=== PATIENT | male | born 1955 | race Caucasian/White ===

== ENCOUNTER → 2017-01-23 | Outpatient (CLI) | payer OTHER ==
[~2017-01-23] MED LIST: AMLODIPINE BESYL5 MG PO; BUPROBAN150 MG PO; GABAPENTIN PO; GABAPENTIN400 MG PO; HYDROCHLOROTH12.5 M3 PO; K-DUR20 MEQ PO; LISINOPRIL20 MG PO; LO-DOSE ASPIRIN81 M2 PO; METFORMIN HCL1000 MG PO; METOPROLOL TART50 MG PO; NEURONTIN800 MG PO; NIACIN 500 MG1 EACH PO; NIASPAN,SLO-NI500 MG PO; OXYCODONE-ACET1 EACH PO; PLAVIX75 MG PO; PLETAL100 MG PO; POTASSIUM CHLO20 ME2 PO; SIMVASTATIN40 MG PO
[2017-01-23 10:24] LABS: PROTHROMBIN TIME 10.6 (9.2-11.2); PTT 31.8 (25-32)
== END | disposition home or self-care (01) ==
LOC: OPR 08:36 → EDSTATUS 09:00
PROVIDERS: Radiology Diagnostic Radiology
DX: C77.0 Secondary and unspecified malignant neoplasm of lymph nodes of head, face and neck (principal); I10 Essential (primary) hypertension; E11.9 Type 2 diabetes mellitus without complications; E78.5 Hyperlipidemia, unspecified; Z87.891 Personal history of nicotine dependence; E66.3 Overweight; Z68.27 Body mass index [BMI] 27.0-27.9, adult; K76.0 Fatty (change of) liver, not elsewhere classified; I65.22 Occlusion and stenosis of left carotid artery; Z83.3 Family history of diabetes mellitus; Z80.0 Family history of malignant neoplasm of digestive organs; Z79.82 Long term (current) use of aspirin; Z79.899 Other long term (current) drug therapy
CPT/HCPCS: 76942; 85610; 85730; 88305; 88341 TC; 88342 TC

== ENCOUNTER 2017-02-21 09:58 | Inpatient (IN) | payer OTHER ==
[~2017-02-21] VITALS: Ht 180.3 cm; Wt 84.0 kg
[2017-02-21] VITALS (7 sets, daily range): BP systolic 99–112; BP diastolic 50–59
[2017-02-21 10:22] LABS: POINT-OF-CARE METER ID UU13113778
[2017-02-21 10:32] LABS: MEAN PLAT.VOLUME 9.4 uM^3 (9.0-12.4); PLATELET COUNT 292 K/uL (156-360)
[2017-02-21 10:42] LABS: CHLORIDE 112 mEq/L (99-109); POTASSIUM 5.5 mEq/L (3.7-5.4); SODIUM 134 mEq/L (136-147)
[2017-02-21 10:43] LABS: GLUCOSE 229 mg/dL (70-99)
[2017-02-21 10:45] LABS: ANION GAP 15 MEQ/L (2-14); HEMATOCRIT 45.4 % (38.0-50.0); MCH 29.9 PG (29.0-34.0); MCHC 32.4 G/DL (30.0-36.0); MCV 92.5 FL (86-99); RBC DIS.WIDTH-CV 13.9 % (11.8-14.6); RBC DIS.WIDTH-SD 46.9 % (39-53); RED BLOOD COUNT 4.91 M/uL (4.00-5.50)
[2017-02-21 10:46] LABS: WHITE BLOOD COUNT 50.9 K/uL (4.1-10.2)
[2017-02-21 10:47] LABS: GFR ESTIMATE (CALCULATED) 6 mL/min/
[2017-02-21 10:48] LABS: UREA NITROGEN (BUN) 83 mg/dL (9-23)
[2017-02-21 11:24] LABS: URIC ACID 15.1 mg/dL (3.1-9.2)
[2017-02-21 11:45] LABS: LACTATE DEHYDROGENASE 431 IU/L (20-246)
[2017-02-21] MEDS ORDERED: NIACIN500 M2 PO (12:41)
[2017-02-21] MEDS ORDERED: NIACIN500 MG PO (12:41)
[2017-02-21] MEDS ORDERED: WELLBUTRIN SR150 MG PO (12:43)
[2017-02-21 16:49] LABS: ANION GAP 12 MEQ/L (2-14); CHLORIDE 115 MEQ/L (99-109); GFR ESTIMATE (CALCULATED) 6 mL/min/; GLUCOSE 160 mg/dL (70-99); POTASSIUM 5.3 MEQ/L (3.7-5.4); SAMPLE HEMOLYSIS CHECK 0; SAMPLE ICTERIC CHECK 0; SAMPLE LIPEMIA CHECK 0; SODIUM 135 MEQ/L (136-147); UREA NITROGEN (BUN) 79 mg/dL (9-23)
[2017-02-21 18:38] LABS: BASE EXCESS -22.6 mEq/L (-3 to +3); BICARBONATE 6.4 mEq/L (22-26); CARBOXY HGB 2.4 % (0-5); PCO2 23 mm Hg (35-45); PO2 84 mm Hg (80-100)
[2017-02-21 18:40] LABS: COMMENTS - BLOOD GASES A+C+; DEVICE RA; SITE LR; pH 7.05 (7.35-7.45)
[2017-02-21 19:22] LABS: ALKALINE PHOSPHATASE 127 IU/L (3-129); CREATINE KINASE 18 IU/L (1-294); DIRECT BILIRUBIN 0.1 mg/dL (0.0-0.3); TOTAL BILIRUBIN 0.2 MG/DL (0.0-1.0)
[2017-02-21 21:18] LABS: ADD MIUA? YES; BILIRUBIN NEGATIVE; BLOOD NEGATIVE; COLOR YELLOW ((YELLOW)); GLUCOSE (STRIP) NEGATIVE; KETONES NEGATIVE; LEUKOCYTES NEGATIVE; NITRITE NEGATIVE; PROTEIN (STRIP) 100; SPECIFIC GRAVITY 1.017 (1.000-1.030); UROBILINOGEN 0.2 MG/DL (0.2-1.0)
[2017-02-21 22:01] LABS: BACTERIA RARE /HPF; EPITHELIAL CELLS NONE SEEN /HPF; HYALINE CASTS 30-40 /LPF; MUCUS TRACE /LPF; RED BLOOD CELLS 0-5 /HPF (0-5)
[2017-02-22] VITALS (7 sets, daily range): BP systolic 102–144; BP diastolic 53–70
[2017-02-22 00:52] LABS: CHLORIDE 118 mEq/L (99-109); POTASSIUM 4.4 mEq/L (3.7-5.4); SODIUM 137 mEq/L (136-147)
[2017-02-22 00:54] LABS: GLUCOSE 203 mg/dL (70-99)
[2017-02-22 00:55] LABS: ANION GAP 10 MEQ/L (2-14)
[2017-02-22 00:58] LABS: GFR ESTIMATE (CALCULATED) 6 mL/min/; UREA NITROGEN (BUN) 75 mg/dL (9-23)
[2017-02-22 06:06] LABS: HEMATOCRIT 34.3 % (38.0-50.0); MCH 30.7 PG (29.0-34.0); MCHC 33.5 G/DL (30.0-36.0); MCV 91.7 FL (86-99); MEAN PLAT.VOLUME 9.7 uM^3 (9.0-12.4); PLATELET COUNT 226 K/uL (156-360); RBC DIS.WIDTH-SD 46.7 % (39-53)
[2017-02-22 06:13] LABS: RED BLOOD COUNT 3.74 M/uL (4.00-5.50); WHITE BLOOD COUNT 44.9 K/uL (4.1-10.2)
[2017-02-22 06:27] LABS: ANION GAP 13 MEQ/L (2-14); CHLORIDE 113 MEQ/L (99-109); GFR ESTIMATE (CALCULATED) 6 mL/min/; GLUCOSE 169 mg/dL (70-99); POTASSIUM 4.1 MEQ/L (3.7-5.4); SAMPLE HEMOLYSIS CHECK 0; SAMPLE ICTERIC CHECK 0; SAMPLE LIPEMIA CHECK 0; SODIUM 136 MEQ/L (136-147); UREA NITROGEN (BUN) 78 mg/dL (9-23)
[2017-02-22 11:27] LABS: BASE EXCESS -13.5 mEq/L (-3 to +3); BICARBONATE 12.1 mEq/L (22-26); CARBOXY HGB 1.9 % (0-5); COMMENTS - BLOOD GASES A+C+; DEVICE RA; PCO2 27 mm Hg (35-45); PO2 79 mm Hg (80-100); SITE LR
[2017-02-22 11:28] LABS: pH 7.26 (7.35-7.45)
[2017-02-22 12:39] LABS: ANION GAP 12 MEQ/L (2-14); CHLORIDE 111 MEQ/L (99-109); GFR ESTIMATE (CALCULATED) 8 mL/min/; GLUCOSE 165 mg/dL (70-99); POTASSIUM 3.4 MEQ/L (3.7-5.4); SAMPLE HEMOLYSIS CHECK 0; SAMPLE ICTERIC CHECK 0; SAMPLE LIPEMIA CHECK 0; SODIUM 136 MEQ/L (136-147); UREA NITROGEN (BUN) 73 mg/dL (9-23)
[2017-02-22 18:17] LABS: ANION GAP 13 MEQ/L (2-14); CHLORIDE 112 MEQ/L (99-109); GFR ESTIMATE (CALCULATED) 12 mL/min/; GLUCOSE 172 mg/dL (70-99); POTASSIUM 3.2 MEQ/L (3.7-5.4); SAMPLE HEMOLYSIS CHECK 0; SAMPLE ICTERIC CHECK 0; SAMPLE LIPEMIA CHECK 0; SODIUM 141 MEQ/L (136-147); UREA NITROGEN (BUN) 67 mg/dL (9-23)
[2017-02-23 01:19] VITALS: BP 128/64
[2017-02-23 04:58] VITALS: BP 138/74
[2017-02-23 06:36] LABS: ANION GAP 10 MEQ/L (2-14); CHLORIDE 114 MEQ/L (99-109); GLUCOSE 171 mg/dL (70-99); POTASSIUM 3.4 MEQ/L (3.7-5.4); SAMPLE HEMOLYSIS CHECK 0; SAMPLE ICTERIC CHECK 0; SAMPLE LIPEMIA CHECK 0; SODIUM 146 MEQ/L (136-147); UREA NITROGEN (BUN) 48 mg/dL (9-23)
[2017-02-23 06:47] LABS: GFR ESTIMATE (CALCULATED) 29 mL/min/
[2017-02-23 07:15] VITALS: BP 156/76
[2017-02-23 09:19] LABS: HEMATOCRIT 33.3 % (38.0-50.0); MCH 29.9 PG (29.0-34.0); MCHC 34.8 G/DL (30.0-36.0); MEAN PLAT.VOLUME 9.6 uM^3 (9.0-12.4); PLATELET COUNT 262 K/uL (156-360); RBC DIS.WIDTH-CV 13.5 % (11.8-14.6); RBC DIS.WIDTH-SD 41.6 % (39-53); RED BLOOD COUNT 3.88 M/uL (4.00-5.50); WHITE BLOOD COUNT 28.8 K/uL (4.1-10.2)
[2017-02-23 09:32] LABS: MCV 85.8 FL (86-99)
[2017-02-23 09:44] LABS: BAND NEUTROPHILS 0.9 % (0-8.0); BASOPHILS 0.9 %; EOSINOPHIL ABS CT 0; LYMPHOCYTES 10.5 % (15.0-45.0); METAMYELOCYTES 0.9 %; SEG.NEUTROPHILS 82.4 % (46.0-76.0)
[2017-02-23 11:14] VITALS: BP 120/76
[2017-02-23 14:34] VITALS: BP 156/76
[2017-02-23 23:27] VITALS: BP 133/63
[2017-02-24 06:47] LABS: BASOPHIL COUNT 0.1 K/uL (0-0.1); EOSINOPHIL (%) 0.6 % (0-5); EOSINOPHIL COUNT 0.1 K/uL (0-0.3); HEMATOCRIT 33.2 % (38.0-50.0); IMMATURE GRANULOCYTE (%) 4.1 % (0.0-0.7); IMMATURE GRANULOCYTE COUNT 0.9 K/uL; INSTRUMENT ABS NEUTROPHIL CT 16.9 K/uL; LYMPHOCYTE COUNT 2.1 K/uL (1.0-2.8); MCHC 34.3 G/DL (30.0-36.0); MCV 87.4 FL (86-99); MEAN PLAT.VOLUME 9.6 uM^3 (9.0-12.4); MONOCYTE (%) 8.5 % (3-12); MONOCYTE COUNT 1.9 K/uL (0-0.8); NEUTROPHIL (%) 76.8 % (45-76); NEUTROPHIL COUNT 16.9 K/uL (1.8-6.4); PLATELET COUNT 260 K/uL (156-360); RBC DIS.WIDTH-CV 13.6 % (11.8-14.6); RBC DIS.WIDTH-SD 42.7 % (39-53)
[2017-02-24 07:15] LABS: ANION GAP 11 MEQ/L (2-14); CHLORIDE 115 MEQ/L (99-109); GLUCOSE 139 mg/dL (70-99); POTASSIUM 3.9 MEQ/L (3.7-5.4); SAMPLE HEMOLYSIS CHECK 0; SAMPLE ICTERIC CHECK 0; SAMPLE LIPEMIA CHECK 0; SODIUM 147 MEQ/L (136-147); UREA NITROGEN (BUN) 30 mg/dL (9-23)
[2017-02-24 07:18] VITALS: BP 157/81
[2017-02-24 07:22] LABS: GFR ESTIMATE (CALCULATED) > 59 mL/min/
[2017-02-24] MEDS ORDERED: MGO400 MG PO (11:31)
[2017-02-24] MEDS ORDERED: NEUTRA-PHOS,1 PACKET PO (11:31)
[2017-02-24] MEDS ORDERED: GABAPENTIN300 MG PO (11:32)
== END 2017-02-24 13:14 | disposition home or self-care (01) | DRG 917 ==
LOC: EME 09:58 → 5EAST 14:23 → 4EAST 14:23 → EDOF 14:23 → 4EAST 15:24 → 5EAST 02-23 14:15
PROVIDERS: Hospitalist; Internal Medicine; Internal Medicine Nephrology; Student in an Organized Health Care Education/Training Program
DX: T45.1X5A Adverse effect of antineoplastic and immunosuppressive drugs, initial encounter (principal); N17.0 Acute kidney failure with tubular necrosis; E87.2 Acidosis; I95.9 Hypotension, unspecified; Z87.891 Personal history of nicotine dependence; C34.90 Malignant neoplasm of unspecified part of unspecified bronchus or lung; E86.0 Dehydration; E83.42 Hypomagnesemia; E87.6 Hypokalemia; E83.39 Other disorders of phosphorus metabolism; E11.9 Type 2 diabetes mellitus without complications; I10 Essential (primary) hypertension; G31.9 Degenerative disease of nervous system, unspecified; R50.9 Fever, unspecified; I70.90 Unspecified atherosclerosis; E87.5 Hyperkalemia; Z66 Do not resuscitate; E78.5 Hyperlipidemia, unspecified; R21 Rash and other nonspecific skin eruption
CPT/HCPCS: 36600; 70450; 71020; 74176; 80048; 80048 91; 80069; 80076; 81003; 82436; 82550; 82550 91; 82803; 82948; 83605; 83615; 83735; 83935; 84133; 84300; 84550; 85025; 85027; 87040; 93005; 99281; 99285; J0692; J1644; J2783; J3475; J7030; J7050; J7070

== ENCOUNTER → 2017-09-02 | Outpatient (CLI) | payer OTHER ==
[~2017-09-02] MED LIST changes: +ASPIR 8181 M1 PO; +CELEXA20 MG PO; +CILOSTAZOL100 MG PO; +DRONABINOL2.5 MG PO; +GABAPENTIN300 MG PO; +HYDROCODON-ACE1 EAC7 PO; +MGO400 MG PO; +NEUTRA-PHOS,1 PACKET PO; +NIACIN500 M2 PO; +NIACIN500 MG PO; +ONDANSETRON HCL8 MG PO; +WELLBUTRIN SR150 MG PO
== END | disposition home or self-care (01) ==
LOC: MRI 10:28 → RAD 11:00
DX: R93.0 Abnormal findings on diagnostic imaging of skull and head, not elsewhere classified (principal); Z85.118 Personal history of other malignant neoplasm of bronchus and lung
CPT/HCPCS: 70553

== ENCOUNTER → 2017-09-08 | Outpatient (CLI) | payer OTHER ==
[2017-09-08 07:55] LABS: HEMATOCRIT 43.6 % (38.0-50.0); HEMOGLOBIN 14.7 G/DL (12.5-16.6); MCH 32.2 PG (29.0-34.0); MCHC 33.7 G/DL (30.0-36.0); MCV 95.4 FL (86-99); PLATELET COUNT 158 K/uL (156-360); RBC DIS.WIDTH-CV 14.2 % (11.8-14.6); RBC DIS.WIDTH-SD 49.2 % (39-53); RED BLOOD COUNT 4.57 M/uL (4.00-5.50); WHITE BLOOD COUNT 6.9 K/uL (4.1-10.2)
[2017-09-08 08:01] LABS: INTER. NORMALIZED RATIO 1.1
[2017-09-08 08:03] LABS: PTT 30.5 SEC (25-37)
== END | disposition home or self-care (01) ==
LOC: RAD 09-04 09:10 → OPR 07:23 → EDSTATUS 08:00
PROVIDERS: Internal Medicine Hematology & Oncology
PROC: 0BBF3ZX Excision of Right Lower Lung Lobe, Percutaneous Approach, Diagnostic (ICD-10-PCS; principal; 2017-09-08)
PROC: BB24ZZZ Computerized Tomography (CT Scan) of Bilateral Lungs (ICD-10-PCS; principal; 2017-09-08)
DX: J70.1 Chronic and other pulmonary manifestations due to radiation (principal); J95.811 Postprocedural pneumothorax; C34.90 Malignant neoplasm of unspecified part of unspecified bronchus or lung; Y84.8 Other medical procedures as the cause of abnormal reaction of the patient, or of later complication, without mention of misadventure at the time of the procedure; Z87.891 Personal history of nicotine dependence; I10 Essential (primary) hypertension; E78.5 Hyperlipidemia, unspecified; M51.06 Intervertebral disc disorders with myelopathy, lumbar region; E11.40 Type 2 diabetes mellitus with diabetic neuropathy, unspecified; R00.0 Tachycardia, unspecified; I65.22 Occlusion and stenosis of left carotid artery; Z79.82 Long term (current) use of aspirin; Z79.02 Long term (current) use of antithrombotics/antiplatelets; Z79.84 Long term (current) use of oral hypoglycemic drugs
CPT/HCPCS: 71045; 77012; 82948; 85027; 85610; 85730; 87070; 87075; 87102; 87116; 87205; 87206; 88305; J3010